=== PATIENT | female | born 1955 | race Two or more races ===

== ENCOUNTER 2025-02-22 12:24 | Outpatient (REF) | payer MEDICARE, OTHER, SELFPAY ==
[2025-02-22 17:02] LABS: ALT 51 U/L (14-59); AST 26 U/L (15-37); Albumin 4.2 g/dL (3.4-5.0); Alkaline Phosphatase 70 U/L (46-116); Anion Gap 9.5 mmol/L (3-11); BUN 20 mg/dL (7-18); Bilirubin, Total 0.6 mg/dL (0.2-1.0); CO2 28.5 mmol/L (21.0-32.0); CREATININE 0.8 mg/dL (0.55-1.02); Calcium 9.8 mg/dL (8.5-10.1); Chloride 102 mmol/L (98-107); Estimated GFR 78.72 (mL/min/1.73m2); Glucose 101 mg/dL (74-106); Magnesium 2.1 mg/dL (1.8-2.4); Sodium 140 mmol/L (136-145); Total Protein 7.6 g/dL (6.4-8.2)
== END 2025-02-22 12:25 | disposition home or self-care (01) ==
LOC: LBN 12:24
PROVIDERS: Visit Provider Physician Assistant
DX: R25.2 Cramp and spasm (principal)
CPT/HCPCS: 80053; 83735

== ENCOUNTER 2025-06-30 07:31 | Outpatient (CLI) | payer MEDICARE, OTHER, SELFPAY ==
--- NOTE | 2025-06-30 05:45 | DI.RAD_ITS ---
Exam(s) XR ANKLE RT COMPLETE XR TIB/FIB RT EXAM: XR TIB/FIB RT CLINICAL HISTORY: Pain right hip, outer lower right leg from kn-ank,pain rt fibula,m89.8x6. TECHNIQUE: 2D digital imaging was performed. Two views of the tibia and fibula. Three views of the ankle COMPARISON: CR XR ANKLE RT COMPLETE from 06/30/2025 FINDINGS: BONES: No acute fracture is present. No bony destructive lesion is seen. Visualized portion of knee and ankle joints are unremarkable. Small heel spurs. SOFT TISSUE: Normal faint vascular calcifications IMPRESSION: Unremarkable radiographs of the right tibia and fibula and right ankle. DATA REPOSITORY: RADIATION DOSE DELIVERED:
--- NOTE | 2025-06-30 05:45 | DI.RAD_ITS ---
Exam(s) XR KNEE RT 3V AP,LAT,EDWARDO EXAM: XR KNEE RT 3V AP,LAT,EDWARDO CLINICAL HISTORY: Pain right hip, outer lower right leg from knee-ank,m25.561. TECHNIQUE: 2D digital imaging was performed. Three views. COMPARISON: No exams were available for comparison FINDINGS: BONES: No acute fracture is present. No bony destructive lesion is seen. JOINTS: The knee is normally aligned. No joint effusion is seen. Joint spaces are maintained. Minimal periarticular spurring. SOFT TISSUE: Normal. IMPRESSION: Minimal degenerative changes. DATA REPOSITORY: RADIATION DOSE DELIVERED:
--- NOTE | 2025-06-30 05:45 | DI.RAD_ITS ---
Exam(s) XR LUMBAR SPINE COMPLETE EXAM: XR LUMBAR SPINE COMPLETE CLINICAL HISTORY: Pain right hip, outer lower right leg from kn-ankle,m25.551. TECHNIQUE: 2D digital imaging was performed. Five views. COMPARISON: No exams were available for comparison FINDINGS: The bony detail somewhat obscured by overlying clothing and bowel gas. BONES: No fracture or destructive lesion. Vertebral body heights are maintained. The are endplate osteophytes larger at L2-3 and L3-4. There are mild facet joint degenerative changes. DISKS: There is [id number] asymmetric narrowing of the L 2 3 and L3-4 disc spaces. There is slight narrowing of the L5-S1 disc space. ALIGNMENT: Lumbar spinal alignment is within normal limits. SOFT TISSUE: Normal. IMPRESSION: Zany-[id number]-xzljamtv degenerative disc changes, greatest at L2-3 and L3-4. DATA REPOSITORY: RADIATION DOSE DELIVERED:
--- NOTE | 2025-06-30 05:45 | DI.RAD_ITS ---
Exam(s) XR HIP RT COMPLETE AP PELVIS EXAM: XR HIP RT COMPLETE AP PELVIS CLINICAL HISTORY: RT HIP/ANKLE PAIN,m25.551. TECHNIQUE: 2D digital imaging was performed. Two views COMPARISON: No exams were available for comparison FINDINGS: BONES: No acute fracture is present. No bony destructive lesion is seen. JOINTS: No dislocation present. There is mild right hip joint space narrowing. On there is moderate right acetabular spurring. There is slight spurring at the margins of the right femoral head. Left hip joint space is maintained. There is mild spurring at the SI joints. SOFT TISSUE: Normal. IMPRESSION: Mild - moderate degenerative changes of the right hip. DATA REPOSITORY: RADIATION DOSE DELIVERED:
== END 2025-06-30 07:51 ==
PROVIDERS: PCP Nurse Practitioner Family; Visit Provider Nurse Practitioner Family
DX: M51.362 Other intervertebral disc degeneration, lumbar region with discogenic back pain and lower extremity pain (principal)
CPT/HCPCS: 73562; 72110; 73502; 73590; 73610

== ENCOUNTER → 2025-08-18 14:19 | Outpatient (BNVA) | payer MEDICARE, OTHER, SELFPAY | PROVIDERS: PCP Nurse Practitioner Family; Referring Provider Nurse Practitioner Family; Visit Provider Student in an Organized Health Care Education/Training Program | DX: M76.71 Peroneal tendinitis, right leg (principal) | CPT/HCPCS: 99203 ==